=== PATIENT | male | born 1995 | race Caucasian/White ===

== ENCOUNTER 2017-01-14 17:21 | Emergency (ER) | payer BC ==
[~2017-01-14] VITALS: Ht 188 cm; Wt 79.4 kg
[2017-01-14 18:53] VITALS: BP 124/76
== END 2017-01-14 18:54 | disposition home or self-care (01) ==
LOC: ER 17:21
DX: S61.411A Laceration without foreign body of right hand, initial encounter (principal); S61.011A Laceration without foreign body of right thumb without damage to nail, initial encounter; S61.212A Laceration without foreign body of right middle finger without damage to nail, initial encounter; S61.214A Laceration without foreign body of right ring finger without damage to nail, initial encounter; W26.8XXA Contact with other sharp object(s), not elsewhere classified, initial encounter; Y93.89 Activity, other specified; Y92.89 Other specified places as the place of occurrence of the external cause; Y99.8 Other external cause status